=== PATIENT | male | born 1960 ===

== ENCOUNTER 2018-04-09 04:57 | Inpatient (IN) ==
[2018-04-09] MEDS ORDERED: BISACODYL 5 MG TABLET PO PRN (07:46)
[2018-04-09] MEDS ORDERED: DEXTROSE 50% 25 GM/50 ML VIAL IV PRN (07:46)
[2018-04-09] MEDS ORDERED: ONDANSETRON 4 MG/2 ML VIAL IV PRN (07:46)
[2018-04-09] MEDS ORDERED: ACETAMINOPHEN 325 MG TABLET PO PRN (07:46)
[2018-04-09] MEDS ORDERED: PROMETHAZINE 25 MG/1 ML VIAL IM PRN (07:46)
[2018-04-09] MEDS ORDERED: GLUCAGON 1 MG VIAL IM PRN (07:46)
[2018-04-09] MEDS ORDERED: MELOXICAM 7.5 MG TABLET PO PRN (07:50)
[2018-04-09 08:01] LABS: Basophils % 0.4 % (0.0-0.8); Eosinophils # 0.1 10*3/uL (0.0-0.87); Eosinophils % 1.1 % (0.00-10.9); Immature Granulocytes % 0.5 %; Immature Granulocytes Absolute 0.04 #; Lymphocytes # 1.6 10*3/uL (1.4-4.0); Lymphocytes % 20.2 % (21.2-54.2); Mean Corpuscular HGB Conc 35.7 GM/DL (32-36); Mean Corpuscular Hemoglobin 33 PG (27-34); Mean Corpuscular Volume 90.9 FL (87-102); Mean Platelet Volume 11.3 FL (9.6-12.0); Monocytes # 0.5 10*3/uL (0.11-0.8); Monocytes % 5.6 % (1.7-12.7); NRBC # 0.02 10*3/uL; Neutrophils # 5.9 10*3/uL (1.4-7.4); Neutrophils % 72.2 % (38.7-73.9); Platelet Count 107 T/CUMM (130-400); Red Blood Count 4.62 MC/CUMM (3.8-5.5); Red Cell Distribution Width 12.4 % (9.3-17.3); White Blood Count 8.1 T/CUMM (4-12)
[2018-04-09 08:19] LABS: Albumin 3.5 G/DL (3.4-5.0); Bilirubin,Total 0.5 MG/DL (0.2-1.0); Calcium 8.3 MG/DL (8.5-10.1); Osmolality,Calculated 281.8 MOS/KG (273-304); Potassium 4.1 MMOL/L (3.5-5.1); Total Protein 6.5 G/DL (6.4-8.3)
[2018-04-09] MEDS ORDERED: LISINOPRIL 20 MG TABLET PO SCH (09:00)
[2018-04-09] MEDS ORDERED: ENOXAPARIN 40 MG/0.4 ML SYRINGE SUBCUT SCH (11:00)
[2018-04-09] MEDS: ASPIRIN EC 325 MG TABLET PO SCH (11:17)
[2018-04-09] MEDS: FENOFIBRATE 145 MG TABLET PO SCH (11:17)
[2018-04-09] MEDS: PANTOPRAZOLE 40 MG TABLET PO SCH (11:17)
[2018-04-09] MEDS: SIMVASTATIN 40 MG TABLET PO SCH (11:17)
[2018-04-09] MEDS: GABAPENTIN 300 MG CAPSULE PO SCH ×3 (11:17→21:50)
[2018-04-09] MEDS: SODIUM CHLORIDE 0.9% 1,000 ML IV SCH ×2 (11:18→21:51)
[2018-04-09] MEDS: INSULIN LISPRO 100 UNIT/ML SUBCUT SCH ×3 (12:39→21:51)
[2018-04-09] MEDS ORDERED: ASPIRIN CHEW 81 MG TABLET PO ONE (14:21)
[2018-04-09] MEDS ORDERED: ENOXAPARIN 60 MG/0.6 ML SYRINGE SUBCUT ONE (14:21)
[2018-04-09 15:31] LABS: CKMB % 7.2 %
[2018-04-09 15:44] LABS: Troponin I 4.28 NG/ML (0.00-0.045)
[2018-04-09] MEDS: METOPROLOL TARTRATE 25 MG TABLET PO SCH ×2 (16:49→21:51)
[2018-04-09] MEDS: glyBURIDE 5 MG TABLET PO SCH (16:50)
[2018-04-09] MEDS: NITROGLYCERIN 2% OINT 1 INCH/GM PACK TOP SCH (18:34)
[2018-04-09] MEDS: amLODIPine 10 MG TABLET PO SCH (18:34)
[2018-04-09 19:01] LABS: Troponin I 5.62 NG/ML (0.00-0.045)
[2018-04-09] MEDS: ENOXAPARIN 100 MG/ML SYRINGE SUBCUT SCH (21:50)
[2018-04-10] MEDS: SODIUM CHLORIDE 0.9% 1,000 ML IV SCH ×3 (00:38→18:43)
[2018-04-10] MEDS: NITROGLYCERIN 2% OINT 1 INCH/GM PACK TOP SCH ×2 (00:38→05:41)
[2018-04-10 05:16] LABS: Basophils % 0.4 % (0.0-0.8); Eosinophils # 0.2 10*3/uL (0.0-0.87); Eosinophils % 2.6 % (0.00-10.9); Hematocrit 40.5 VOL% (42.0-52.0); Hemoglobin 14.3 GM/DL (14.0-18.0); Immature Granulocytes % 0.4 %; Immature Granulocytes Absolute 0.03 #; Lymphocytes # 2.9 10*3/uL (1.4-4.0); Lymphocytes % 41.2 % (21.2-54.2); Mean Corpuscular HGB Conc 35.3 GM/DL (32-36); Mean Corpuscular Hemoglobin 32 PG (27-34); Mean Corpuscular Volume 91.4 FL (87-102); Monocytes # 0.5 10*3/uL (0.11-0.8); Monocytes % 7.2 % (1.7-12.7); Neutrophils # 3.4 10*3/uL (1.4-7.4); Neutrophils % 48.2 % (38.7-73.9); Platelet Count 102 T/CUMM (130-400); Red Blood Count 4.43 MC/CUMM (3.8-5.5); Red Cell Distribution Width 12.6 % (9.3-17.3)
[2018-04-10 05:46] LABS: Albumin 2.9 G/DL (3.4-5.0); Bilirubin,Total 0.7 MG/DL (0.2-1.0); Calcium 8.2 MG/DL (8.5-10.1); Osmolality,Calculated 286.3 MOS/KG (273-304); Risk Ratio 3.85; Total Protein 5.8 G/DL (6.4-8.3); VLDL CHOLESTEROL 59.2 MG/DL
[2018-04-10] MEDS ORDERED: MAGNESIUM SULF RIDER 2 GM in PREMIX 1 EACH IV PRN (07:48)
[2018-04-10] MEDS ORDERED: diphenhydrAMINE CAP 25 MG CAPSULE PO ONE (07:48)
[2018-04-10] MEDS ORDERED: DIAZEPAM 5 MG TABLET PO ONE (07:48)
[2018-04-10] MEDS ORDERED: POTASSIUM CHLORIDE RIDER 10 MEQ in PREMIX 1 EACH IV PRN (07:48)
[2018-04-10] MEDS: INSULIN LISPRO 100 UNIT/ML SUBCUT SCH ×4 (08:06→21:49)
[2018-04-10] MEDS: METOPROLOL TARTRATE 25 MG TABLET PO SCH (08:59)
[2018-04-10] MEDS: SIMVASTATIN 40 MG TABLET PO SCH (08:59)
[2018-04-10] MEDS: FENOFIBRATE 145 MG TABLET PO SCH (09:00)
[2018-04-10] MEDS ORDERED: HEPARIN/NACL 0.9% 2 UNITS/ML 1,000 ML IV ONE (09:00)
[2018-04-10] MEDS: ENOXAPARIN 100 MG/ML SYRINGE SUBCUT SCH (09:00)
[2018-04-10] MEDS: ASPIRIN EC 325 MG TABLET PO SCH (09:00)
[2018-04-10] MEDS: GABAPENTIN 300 MG CAPSULE PO SCH ×3 (09:00→21:41)
[2018-04-10] MEDS: glyBURIDE 5 MG TABLET PO SCH ×2 (09:00→18:23)
[2018-04-10] MEDS: PANTOPRAZOLE 40 MG TABLET PO SCH (09:00)
[2018-04-10] MEDS ORDERED: LIDOCAINE 1%/EPI INJ 20 ML VIAL ONE (09:20)
[2018-04-10] MEDS ORDERED: fentaNYL 100 MCG/2 ML VIAL ONE (09:27)
[2018-04-10] MEDS ORDERED: MIDAZOLAM 2 MG/2 ML VIAL ONE ×2 (09:27→09:54)
[2018-04-10] MEDS ORDERED: HYDROmorphone 2 MG/1 ML VIAL ONE (09:59)
[2018-04-10] MEDS ORDERED: TIROFIBAN 5,000 MCG/100 ML PREMIX IV SCH (10:00)
[2018-04-10] MEDS ORDERED: HEPARIN/NACL 0.9% 2 UNITS/ML 500 ML IV ONE (10:16)
[2018-04-10] MEDS ORDERED: TIROFIBAN 5,000 MCG/100 ML PREMIX IV ONE (10:16)
[2018-04-10] MEDS ORDERED: diphenhydrAMINE 50 MG/1 ML VIAL ONE (10:18)
[2018-04-10] MEDS ORDERED: cloNIDine 0.1 MG TABLET ONE (10:40)
[2018-04-10] MEDS ORDERED: TICAGRELOR 90 MG TABLET ONE (10:40)
[2018-04-10 10:48] LABS: Apearance,Urine CLEAR (Clear); Bilirubin,Urine Negative (Negative); Blood, Urine Negative (Negative); Glucose,Urine (UA) 50 mg/dL (Negative); Ketones,Urine Negative (Negative); Mucus,Urine Occasional /LPF (Occasional); Nitrite,Urine Negative (Negative); Protein,Urine 30 MG/DL; RBC,Urine <1 /HPF (0-4); Urine Color Yellow (Yellow); Urine Specific Gravity 1.018 (1.001-1.035); Urine Urobilinogen < 2.0 EU/DL (0.2-1.0); WBC,Urine <1 /HPF (0-6)
[2018-04-10] MEDS ORDERED: HYDROmorphone 2 MG/1 ML VIAL IV PRN (11:12)
[2018-04-10] MEDS ORDERED: ASPIRIN EC 81 MG TABLET PO SCH (11:18)
[2018-04-10] MEDS: OMEGA 3 ACID ETHYL ESTERS 1 GM CAPSULE PO SCH (12:55)
[2018-04-10] MEDS: amLODIPine 10 MG TABLET PO SCH (18:23)
[2018-04-10] MEDS ORDERED: LORazepam 2 MG/1 ML VIAL IV PRN ×2 (20:29→20:41)
[2018-04-10] MEDS ORDERED: FUROSEMIDE 20 MG/2 ML VIAL IV ONE (21:18)
[2018-04-10] MEDS: SACUBITRIL/VALSARTAN 49-51 MG TABLET PO SCH (21:40)
[2018-04-10] MEDS: METOPROLOL TARTRATE 50 MG TABLET PO SCH (21:41)
[2018-04-10] MEDS: TICAGRELOR 90 MG TABLET PO SCH (21:41)
[2018-04-10] MEDS ORDERED: THIAMINE INJ 100 MG, FOLIC ACID INJ 1 MG, MULTIVITAMIN INJ 10 ML in SODIUM CHLORIDE 0.9... IV SCH (22:00)
[2018-04-11] MEDS: ALBUTEROL/IPRATROPIUM 3 ML NEB RESP TX SCH ×2 (00:52→07:44)
[2018-04-11 04:19] LABS: Basophils % 0.3 % (0.0-0.8); Eosinophils # 0.1 10*3/uL (0.0-0.87); Eosinophils % 1.8 % (0.00-10.9); Hematocrit 45.4 VOL% (42.0-52.0); Hemoglobin 15.7 GM/DL (14.0-18.0); Immature Granulocytes % 0.3 %; Immature Granulocytes Absolute 0.02 #; Lymphocytes # 1.6 10*3/uL (1.4-4.0); Lymphocytes % 25.2 % (21.2-54.2); Mean Corpuscular HGB Conc 34.6 GM/DL (32-36); Mean Corpuscular Hemoglobin 32 PG (27-34); Mean Corpuscular Volume 91.7 FL (87-102); Mean Platelet Volume 10.4 FL (9.6-12.0); Monocytes # 0.5 10*3/uL (0.11-0.8); Monocytes % 7.8 % (1.7-12.7); Neutrophils % 64.6 % (38.7-73.9); Platelet Count 88 T/CUMM (130-400); Red Blood Count 4.95 MC/CUMM (3.8-5.5); Red Cell Distribution Width 12.6 % (9.3-17.3); White Blood Count 6.2 T/CUMM (4-12)
[2018-04-11 04:24] LABS: Calcium 8.7 MG/DL (8.5-10.1); Osmolality,Calculated 279.5 MOS/KG (273-304); Potassium 3.7 MMOL/L (3.5-5.1)
[2018-04-11 05:03] LABS: Eosinophils 4 % (0-10); Hypochromasia 1+; Lymphocytes 19 % (20-55); Platelet Estimate Decreased; Segmented Neutrophils 71 % (50-85); Total Cells Counted 100
[2018-04-11] MEDS: INSULIN LISPRO 100 UNIT/ML SUBCUT SCH ×2 (08:23→12:23)
[2018-04-11] MEDS ORDERED: FUROSEMIDE 20 MG/2 ML VIAL IV ONE (08:32)
[2018-04-11] MEDS ORDERED: FUROSEMIDE 40 MG/4 ML VIAL ONE (08:34)
[2018-04-11] MEDS: glyBURIDE 5 MG TABLET PO SCH (08:41)
[2018-04-11] MEDS: METOPROLOL TARTRATE 50 MG TABLET PO SCH (08:41)
[2018-04-11] MEDS: SACUBITRIL/VALSARTAN 49-51 MG TABLET PO SCH (08:41)
[2018-04-11] MEDS: SIMVASTATIN 40 MG TABLET PO SCH (08:41)
[2018-04-11] MEDS: OMEGA 3 ACID ETHYL ESTERS 1 GM CAPSULE PO SCH (08:41)
[2018-04-11] MEDS: GABAPENTIN 300 MG CAPSULE PO SCH (08:41)
[2018-04-11] MEDS: FENOFIBRATE 145 MG TABLET PO SCH (08:41)
[2018-04-11] MEDS: TICAGRELOR 90 MG TABLET PO SCH (08:41)
[2018-04-11] MEDS: PANTOPRAZOLE 40 MG TABLET PO SCH (08:41)
[2018-04-11 11:59] VITALS: BP 153/71
== END 2018-04-11 12:36 | disposition home or self-care (01) | DRG 247 ==
LOC: EDUNIT# → EDBD → N.ED 04:57 → N.EDINP 04:57 → SUATTDRO 07:46 → N.TELES 10:40
PROVIDERS: ADMIT Internal Medicine Cardiovascular Disease; ATTEND Internal Medicine
PROC: CLCCHCL (ICD-10-PCS; 2018-04-10 10:15)